=== PATIENT | female | born 1990 | race Hispanic/Latino ===

== ENCOUNTER 2017-12-23 09:40 | Emergency (ER) | payer OTHER ==
[~2017-12-23 09:40] MED LIST: GLYB-228 PO; PREN1COM14 PO
== END 2017-12-23 10:01 | disposition home or self-care (01) ==
LOC: EDH 09:40
DX: O99.511 Diseases of the respiratory system complicating pregnancy, first trimester (principal); R05 Cough; Z3A.00 Weeks of gestation of pregnancy not specified
CPT/HCPCS: 99281

== ENCOUNTER 2017-12-28 00:52 | Emergency (ER) | payer OTHER ==
[2017-12-28 02:02] LABS: BASOPHILS % (AUTO) 0.3 % (0.0-5.0); EOSINOPHILS % (AUTO) 0.6 % (0.0-8.0); HEMATOCRIT 35.1 % (36-48); MEAN CORPUSCULAR HEMOGLOBIN 32.1 pg (27.0-33.0); MEAN CORPUSCULAR HGB CONC 35.9 g/dL (32.0-36.0); MEAN CORPUSCULAR VOLUME 89.4 fL (79-99); MONOCYTES % (AUTO) 7.3 % (3.0-13.0); NEUTROPHILS % (AUTO) 67.8 % (40.0-77.0); PLATELET COUNT (AUTO) 213 K/uL (130-400); RED BLOOD CELL COUNT(AUTO) 3.93 MIL/uL (4.00-5.50); RED CELL DISTRIBUTION WIDTH 13.1 % (11.0-15.5); WHITE BLOOD COUNT (AUTO) 9.4 K/uL (4.8-10.8)
[2017-12-28 02:08] LABS: CREATININE 0.5 mg/dL (0.5-1.5); POTASSIUM 3.4 mmol/L (3.5-5.1)
[2017-12-28 02:34] LABS: ALBUMIN 2.8 g/dL (3.5-5.0); BILIRUBIN,TOTAL 0.2 mg/dL (0.2-1.0); TOTAL PROTEIN, SERUM 6.5 g/dL (6.0-8.3)
== END 2017-12-28 02:35 | disposition home or self-care (01) ==
LOC: EDH 00:52
DX: O99.511 Diseases of the respiratory system complicating pregnancy, first trimester (principal); O20.9 Hemorrhage in early pregnancy, unspecified; Z3A.14 14 weeks gestation of pregnancy
CPT/HCPCS: 36415; 76801; 80053; 84702; 85025

== ENCOUNTER 2018-01-15 03:03 | Emergency (ER) | payer OTHER ==
[2018-01-15 04:02] LABS: BASOPHILS % (AUTO) 0.3 % (0.0-5.0); HEMATOCRIT 38.7 % (36-48); MEAN CORPUSCULAR HEMOGLOBIN 32.4 pg (27.0-33.0); MEAN CORPUSCULAR HGB CONC 35.8 g/dL (32.0-36.0); MEAN CORPUSCULAR VOLUME 90.4 fL (79-99); MONOCYTES % (AUTO) 6.6 % (3.0-13.0); NEUTROPHILS % (AUTO) 67.1 % (40.0-77.0); PLATELET COUNT (AUTO) 236 K/uL (130-400); RED BLOOD CELL COUNT(AUTO) 4.28 MIL/uL (4.00-5.50); RED CELL DISTRIBUTION WIDTH 13.2 % (11.0-15.5); WHITE BLOOD COUNT (AUTO) 10.3 K/uL (4.8-10.8)
[2018-01-15 04:03] LABS: APPEARANCE,URINE Clear (CLEAR); BILIRUBIN,URINE Negative (NEGATIVE); COLOR,URINE Yellow (YELLOW); GLUCOSE, URINE (UA) Negative (NEGATIVE); KETONES,URINE Trace mg/dL (NEGATIVE); LEUKOCYTE ESTERASE ,URINE Negative (NEGATIVE); NITRATE,URINE Negative (NEGATIVE); OCCULT BLOOD,URINE Negative (NEGATIVE); PROTEIN,URINE Negative (NEGATIVE); UROBILINOGEN,URINE 0.2 mg/dL (0.2-1.0)
[2018-01-15 04:10] LABS: AMPHET/METH SCREEN,URINE NEGATIVE (NEGATIVE); BARBITURATE SCREEN, URINE NEGATIVE (NEGATIVE); BENZODIAZEPINES SCREEN,URINE NEGATIVE (NEGATIVE); CANNABINOID SCREEN,URINE NEGATIVE (NEGATIVE); COCAINE SCREEN,URINE NEGATIVE (NEGATIVE); OPIATE SCREEN,URINE NEGATIVE (NEGATIVE); PHENCYCLIDINE SCREEN,URINE NEGATIVE (NEGATIVE)
[2018-01-15 04:12] LABS: CREATININE 0.6 mg/dL (0.5-1.5); POTASSIUM 3.6 mmol/L (3.5-5.1)
[2018-01-15 04:16] LABS: ALBUMIN 2.9 g/dL (3.5-5.0); BILIRUBIN,DIRECT 0.1 mg/dL (0.0-0.3); BILIRUBIN,TOTAL 0.2 mg/dL (0.2-1.0); TOTAL PROTEIN, SERUM 6.6 g/dL (6.0-8.3)
[2018-01-15 04:17] LABS: BACTERIA,URINE Few /HPF (None Seen); RBC,URINE 0-1 /HPF (0-1)
== END 2018-01-15 06:02 | disposition home or self-care (01) ==
LOC: EDH 03:03
DX: O20.0 Threatened abortion (principal); Z87.891 Personal history of nicotine dependence; Z79.899 Other long term (current) drug therapy; Z98.890 Other specified postprocedural states; Z3A.15 15 weeks gestation of pregnancy
CPT/HCPCS: 36415; 76705; 76805; 80048; 80076; 80305; 81001; 83690; 84702; 85025

== ENCOUNTER 2018-05-17 09:21 | Observation (INO) | payer OTHER ==
[~2018-05-17] VITALS: Ht 165.1 cm; Wt 131.5 kg
[2018-05-17 10:06] LABS: APPEARANCE,URINE Cloudy (CLEAR); BILIRUBIN,URINE Negative (NEGATIVE); COLOR,URINE Dark Yellow (YELLOW); GLUCOSE, URINE (UA) Negative (NEGATIVE); KETONES,URINE >=160 mg/dL (NEGATIVE); LEUKOCYTE ESTERASE ,URINE Trace (NEGATIVE); NITRATE,URINE Negative (NEGATIVE); OCCULT BLOOD,URINE Negative (NEGATIVE); PH,URINE 6.5 (5.0-8.0); PROTEIN,URINE POS 1+ (NEGATIVE)
[2018-05-17 10:22] LABS: WBC,URINE 0-1 /HPF (0-1)
[2018-05-17 10:23] LABS: BACTERIA,URINE Rare /HPF (None Seen); SQUAMOUS EPITHELIAL CELL,UR Few /HPF (0-2)
[2018-05-17 10:26] LABS: AMPHET/METH SCREEN,URINE NEGATIVE (NEGATIVE); BARBITURATE SCREEN, URINE NEGATIVE (NEGATIVE); BENZODIAZEPINES SCREEN,URINE NEGATIVE (NEGATIVE); CANNABINOID SCREEN,URINE NEGATIVE (NEGATIVE); COCAINE SCREEN,URINE NEGATIVE (NEGATIVE); OPIATE SCREEN,URINE NEGATIVE (NEGATIVE); PHENCYCLIDINE SCREEN,URINE NEGATIVE (NEGATIVE)
[2018-05-17] MEDS ORDERED: PROMETHAZINE HCL 25 MG/ML 1ML AMPULE IM SCH (10:30)
[2018-05-17 10:42] VITALS: BP 130/68
[2018-05-17] MEDS: LACTATED RINGERS 1000ML 1,000 ML IV PRN ×2 (10:56→22:35)
[2018-05-17] MEDS ORDERED: CITRIC ACID/SODIUM CITRATE 30 ML UDCUP PO SCH (11:15)
[2018-05-17] MEDS ORDERED: FAMOTIDINE/PF 20 MG/2 ML VIAL IV SCH (11:15)
[2018-05-17] MEDS ORDERED: ACETAMINOPHEN EXTRA STRENGTH 500 MG TABLET ONE (13:15)
[2018-05-17] MEDS: ACETAMINOPHEN EXTRA STRENGTH 500 MG TABLET PO SCH (13:15)
[2018-05-17] MEDS ORDERED: ONDANSETRON HCL 4 MG/2 ML VIAL IVP PRN (14:30)
[2018-05-17] MEDS ORDERED: PROMETHAZINE HCL 25 MG/ML 1ML AMPULE IM PRN (14:30)
[2018-05-17] MEDS: OSELTAMIVIR PHOSPHATE 75 MG CAP PO SCH (15:14)
[2018-05-17 15:22] LABS: BASOPHILS % (AUTO) 0.4 % (0.0-5.0); EOSINOPHILS % (AUTO) 0.2 % (0.0-8.0); HEMATOCRIT 34.2 % (36-48); LYMPHOCYTES % (AUTO) 10.6 % (21.0-51.0); MEAN CORPUSCULAR HEMOGLOBIN 32.2 pg (27.0-33.0); MEAN CORPUSCULAR HGB CONC 34.6 g/dL (32.0-36.0); MEAN CORPUSCULAR VOLUME 93.1 fL (79-99); MONOCYTES % (AUTO) 5.5 % (3.0-13.0); NEUTROPHILS % (AUTO) 83.3 % (40.0-77.0); PLATELET COUNT (AUTO) 203 K/uL (130-400); RED BLOOD CELL COUNT(AUTO) 3.68 MIL/uL (4.00-5.50); RED CELL DISTRIBUTION WIDTH 14.8 % (11.0-15.5)
[2018-05-17 15:40] VITALS: BP 132/69
[2018-05-17 19:44] VITALS: BP 120/77
[2018-05-17 23:53] VITALS: BP 132/50
[2018-05-18] MEDS ORDERED: ACETAMINOPHEN EXTRA STRENGTH 500 MG TABLET PO PRN
[2018-05-18] MEDS: ACETAMINOPHEN EXTRA STRENGTH 500 MG TABLET PO SCH (00:16)
[2018-05-18 04:16] VITALS: BP 119/67
[2018-05-18] MEDS: LACTATED RINGERS 1000ML 1,000 ML IV PRN (06:02)
[2018-05-18 07:51] VITALS: BP 119/57
[2018-05-18] MEDS: OSELTAMIVIR PHOSPHATE 75 MG CAP PO SCH (09:00)
[2018-05-18 11:24] VITALS: BP 125/65
== END 2018-05-18 13:40 | disposition home or self-care (01) ==
LOC: EDH 09:21 → LDH 09:22 → WSH 15:40
PROVIDERS: ADMIT Obstetrics & Gynecology; ATTEND Obstetrics & Gynecology
DX: O21.2 Late vomiting of pregnancy (principal); O26.893 Other specified pregnancy related conditions, third trimester; R50.9 Fever, unspecified; Z3A.34 34 weeks gestation of pregnancy; Z79.899 Other long term (current) drug therapy
CPT/HCPCS: 36415; 80305; 81001; 85025; 87804 ×2; 96360; 96361 ×3; 99285; G0378 ×28; J2550; J3490; J7120 ×3

== ENCOUNTER 2018-06-24 10:57 | Inpatient (IN) | payer OTHER ==
[~2018-06-24] VITALS: Ht 165.1 cm; Wt 141.5 kg
[2018-06-24] MEDS ORDERED: LACTATED RINGERS 1000ML 1,000 ML IV SCH (11:00)
[2018-06-24] MEDS ORDERED: CEFAZOLIN SODIUM 1 GM VIAL IVP PRN (11:00)
[2018-06-24 11:53] LABS: BASOPHILS % (AUTO) 0.4 % (0.0-5.0); EOSINOPHILS % (AUTO) 0.4 % (0.0-8.0); HEMATOCRIT 35.6 % (36-48); LYMPHOCYTES % (AUTO) 21.9 % (21.0-51.0); MEAN CORPUSCULAR HEMOGLOBIN 30.2 pg (27.0-33.0); MEAN CORPUSCULAR HGB CONC 33.2 g/dL (32.0-36.0); MEAN CORPUSCULAR VOLUME 90.9 fL (79-99); MONOCYTES % (AUTO) 9.4 % (3.0-13.0); NEUTROPHILS % (AUTO) 67.9 % (40.0-77.0); NUCLEATED RED BLOOD CELLS 0.1 % (0.0-0.19); PLATELET COUNT (AUTO) 186 K/uL (130-400); RED BLOOD CELL COUNT(AUTO) 3.92 MIL/uL (4.00-5.50); RED CELL DISTRIBUTION WIDTH 14.1 % (11.0-15.5); WHITE BLOOD COUNT (AUTO) 6.8 K/uL (4.8-10.8)
[2018-06-24 12:02] LABS: CREATININE 0.6 mg/dL (0.5-1.5)
[2018-06-24 12:06] LABS: ALBUMIN 2.1 g/dL (3.5-5.0); BILIRUBIN,TOTAL 0.2 mg/dL (0.2-1.0); TOTAL PROTEIN, SERUM 5.8 g/dL (6.0-8.3); URIC ACID 5.5 mg/dL (2.6-7.2)
[2018-06-24 12:08] LABS: INR 0.91 (0.85-1.15); PARTIAL THROMBOPLASTIN TIME 22.6 SEC (26.3-35.5); PROTHROMBIN TIME 9.6 SEC (9.6-11.6)
[2018-06-24 12:25] VITALS: BP 144/62
[2018-06-24 12:34] LABS: APPEARANCE,URINE Clear (CLEAR); BILIRUBIN,URINE Negative (NEGATIVE); COLOR,URINE Yellow (YELLOW); GLUCOSE, URINE (UA) Negative (NEGATIVE); KETONES,URINE Trace mg/dL (NEGATIVE); LEUKOCYTE ESTERASE ,URINE Negative (NEGATIVE); NITRATE,URINE Negative (NEGATIVE); OCCULT BLOOD,URINE Negative (NEGATIVE); PH,URINE 6.5 (5.0-8.0); PROTEIN,URINE Trace (NEGATIVE)
[2018-06-24 13:38] LABS: BACTERIA,URINE Few /HPF (None Seen); CALCIUM OXALATE CRYSTALS,UR Few /LPF (None Seen); MUCUS,URINE Few LPF (None Seen); RBC,URINE None Seen /HPF (0-1); SQUAMOUS EPITHELIAL CELL,UR Moderate /HPF (0-2); WBC,URINE None Seen /HPF (0-1)
[2018-06-24] MEDS ORDERED: ACETAMINOPHEN EXTRA STRENGTH 500 MG TABLET PO PRN (18:45)
[2018-06-24] MEDS ORDERED: ZOLPIDEM TARTRATE 5 MG TAB PO PRN (19:15)
[2018-06-25] MEDS ORDERED: LACTATED RINGERS 1000ML 1,000 ML IV ONE (04:09)
[2018-06-25 08:23] LABS: HEPATITIS Bs ANTIGEN SCREEN P Negative (Negative)
[2018-06-25] MEDS ORDERED: SENSORCAINE/DEXT/PF 0.75% 2ML AMP IJ ONE (08:43)
[2018-06-25] MEDS ORDERED: OXYTOCIN 10 UNIT/1ML 10ML VIAL ONE (08:47)
[2018-06-25] MEDS ORDERED: DURAMORPH PF1 MG/ML 10ML AMP IV ONE (08:47)
[2018-06-25] MEDS ORDERED: ONDANSETRON HCL 4 MG/2 ML VIAL ONE ×2 (09:09→09:19)
[2018-06-25] MEDS ORDERED: OXYTOCIN-LR 20 UNITS/1000 ML 1,000 ML IV PRN (09:58)
[2018-06-25] MEDS ORDERED: PROMETHAZINE HCL 25 MG/ML 1ML AMPULE IM PRN ×2 (10:00→12:00)
[2018-06-25] MEDS ORDERED: SODIUM CHLORIDE 0.9% 10 ML VIAL IVP PRN (10:00)
[2018-06-25] MEDS ORDERED: DEXTROSE 5 %-0.45 % NACL 1,000 ML IV PRN (10:00)
[2018-06-25] MEDS ORDERED: MEPERIDINE-PF 75 MG/ML SYG IM PRN (10:00)
[2018-06-25 11:20] VITALS: BP 137/89
[2018-06-25] MEDS ORDERED: FAMO-136 PO (11:30)
[2018-06-25] MEDS ORDERED: ACET-66 PO (11:30)
[2018-06-25] MEDS ORDERED: METOCLOPRAMIDE 10 MG/2 ML VIAL IVP PRN (12:00)
[2018-06-25] MEDS ORDERED: HYDROCODONE/ACETAMINOPHEN 5/325 MG TAB PO PRN (12:00)
[2018-06-25] MEDS ORDERED: NALOXONE HCL 0.4 MG/1 ML ML IVP PRN ×2 (12:00)
[2018-06-25] MEDS ORDERED: ONDANSETRON HCL 4 MG/2 ML 8 MG in SODIUM CHLORIDE 0.9% 50 ML IVP NR (12:00)
[2018-06-25] MEDS ORDERED: ONDANSETRON HCL 4 MG/2 ML VIAL IVP PRN ×2 (12:00)
[2018-06-25] MEDS ORDERED: MORPHINE SULFATE 2 MG/ML 1ML SYG IVP PRN (12:00)
[2018-06-25] MEDS: HYDROCODONE/ACETAMINOPHEN 5/325 MG TAB PO PRN (14:37)
[2018-06-25 16:24] VITALS: BP 140/84
[2018-06-25] MEDS ORDERED: OXYTOCIN 10 USP UNITS/ML ONE (18:13)
[2018-06-25] MEDS: CALDOLOR 800MG+NS 250ML 250 ML IV SCH (18:20)
[2018-06-25 20:16] VITALS: BP_SYST 124; BP_SYST 144; BP_DIAS 68; BP_DIAS 72
[2018-06-26 00:55] VITALS: BP 136/76
[2018-06-26] MEDS: CALDOLOR 800MG+NS 250ML 250 ML IV SCH (01:58)
[2018-06-26 03:34] VITALS: BP 133/71
[2018-06-26] MEDS: HYDROCODONE/ACETAMINOPHEN 5/325 MG TAB PO PRN ×2 (06:35→17:38)
[2018-06-26] MEDS: GUAIFENESIN-DM 200/20 MG 10 ML PO PRN ×2 (06:37→12:53)
[2018-06-26 07:37] VITALS: BP 136/87
[2018-06-26] MEDS ORDERED: BISACODYL 10 MG SUPP.RECT RC PRN (09:15)
[2018-06-26] MEDS ORDERED: DIPHENHYDRAMINE HCL 25 MG CAPSULE PO PRN (09:15)
[2018-06-26] MEDS ORDERED: ACETAMINOPHEN EXTRA STRENGTH 500 MG TABLET PO PRN (09:15)
[2018-06-26] MEDS ORDERED: HYDROCODONE/ACETAMINOPHEN 5/325 MG TAB PO PRN (09:15)
[2018-06-26] MEDS: SIMETHICONE 80 MG TAB.CHEW PO PRN ×4 (09:47→20:42)
[2018-06-26] MEDS: DOCUSATE SODIUM 100 MG CAP PO SCH ×4 (09:48→20:55)
[2018-06-26] MEDS: IBUPROFEN 800 MG TAB PO SCH ×2 (09:49→17:39)
[2018-06-26 11:28] VITALS: BP 131/86
[2018-06-26 11:32] LABS: HEMATOCRIT 34.7 % (36-48); MEAN CORPUSCULAR HGB CONC 33.2 g/dL (32.0-36.0); MEAN CORPUSCULAR VOLUME 93.4 fL (79-99); PLATELET COUNT (AUTO) 125 K/uL (130-400); RED BLOOD CELL COUNT(AUTO) 3.72 MIL/uL (4.00-5.50); RED CELL DISTRIBUTION WIDTH 14.1 % (11.0-15.5); WHITE BLOOD COUNT (AUTO) 7.6 K/uL (4.8-10.8)
[2018-06-26] MEDS: ACETAMINOPHEN-CODEINE 300/30MG TAB PO PRN (12:53)
[2018-06-26 15:33] VITALS: BP 133/69
[2018-06-26 22:35] VITALS: BP 139/76
[2018-06-27] MEDS: HYDROCODONE/ACETAMINOPHEN 5/325 MG TAB PO PRN (00:08)
[2018-06-27 00:26] VITALS: BP 140/79
[2018-06-27] MEDS: IBUPROFEN 800 MG TAB PO SCH ×2 (02:10→11:12)
[2018-06-27 03:31] VITALS: BP 121/71
[2018-06-27] MEDS: ACETAMINOPHEN-CODEINE 300/30MG TAB PO PRN ×2 (07:44→11:57)
[2018-06-27 08:12] VITALS: BP 125/69
[2018-06-27] MEDS: DOCUSATE SODIUM 100 MG CAP PO SCH (09:01)
[2018-06-27] MEDS: SIMETHICONE 80 MG TAB.CHEW PO PRN (09:01)
[2018-06-27] MEDS: GUAIFENESIN-DM 200/20 MG 10 ML PO PRN (09:01)
[2018-06-27 11:34] VITALS: BP 141/91
== END 2018-06-27 14:05 | disposition home or self-care (01) | DRG 788 ==
LOC: LDH 10:57 → WSH 06-25 11:20
PROVIDERS: ADMIT Obstetrics & Gynecology; ATTEND Obstetrics & Gynecology
PROC: 10D00Z1 Extraction of Products of Conception, Low, Open Approach (ICD-10-PCS; principal; 2018-06-25 09:20)
DX: O34.211 Maternal care for low transverse scar from previous cesarean delivery (principal); O14.04 Mild to moderate pre-eclampsia, complicating childbirth; E66.01 Morbid (severe) obesity due to excess calories; O99.214 Obesity complicating childbirth; Z37.0 Single live birth; Z3A.38 38 weeks gestation of pregnancy
CPT/HCPCS: 36415; 59510; 80053; 81001; 84550; 85025; 85027; 85384; 85610; 85730; 86592; 86850; 86900; 86901; 87340; A4344; A4450; A4606; J0690; J1741; J2274; J2405; J2590; J3490; J7120